=== PATIENT | male | born 1965 | race Two or more races ===

== ENCOUNTER 2019-01-04 11:12 | Emergency (ER) | payer BC ==
--- NOTE | 2019-01-04 11:26 | EDM.PDOC ---
ED HPI GENERAL MEDICAL PROBLEM - General Chief Complaint: General Stated Complaint: SICK Time Seen by Provider: 01/04/19 11:22 Source of Information: Reports: Patient History Limitations: Reports: No Limitations - History of Present Illness INITIAL COMMENTS - FREE TEXT/NARRATIVE: HISTORY AND PHYSICAL: History of present illness: Patient is a 53-year-old male who presents to the emergency room with complaints of fatigue and generalized weakness which started this morning. He states that he woke up and just felt "off". He is unable to describe in detail how he is feeling but is concerned that he is sick. He denies any headache, syncope, near syncope or change in vision. Denies any recent head injury, trauma or falls. He denies any fever, chills, chest pain, shortness of breath or cough. He denies any abdominal pain, nausea, vomiting, diarrhea, constipation or dysuria. He states he has been eating and drinking appropriately. Patient does have a history of type 2 diabetes and takes oral metformin for management of this. He states he last saw his primary care provider approximately 8 months ago as a routine evaluation. Review of systems: As per history of present illness and below otherwise all systems reviewed and negative. Past medical history: As per history of present illness and as reviewed below otherwise noncontributory. Surgical history: As per history of present illness and as reviewed below otherwise noncontributory. Social history: See social history for further information Family history: As per history of present illness and as reviewed below otherwise noncontributory. Physical exam: General: Well-developed and well-nourished 53-year-old male. Alert and oriented. Nontoxic appearing and in no acute distress. HEENT: Atraumatic, normocephalic, pupils equal and reactive bilaterally, negative for conjunctival pallor or scleral icterus, mucous membranes moist, TMs normal bilaterally, throat clear, neck supple, nontender, trachea midline. No drooling or trismus noted. No meningeal signs. No hot potato voice noted. Lungs: Clear to auscultation, breath sounds equal bilaterally, chest nontender. Heart: S1S2, regular rate and rhythm without overt murmur Abdomen: Soft, nondistended, nontender. Negative for masses or hepatosplenomegaly. Negative for costovertebral tenderness. Pelvis: Stable nontender. Genitourinary: Deferred. Rectal: Deferred. Skin: Intact, warm, dry. No lesions or rashes noted. Extremities: Atraumatic, negative for cords or calf pain. Neurovascular unremarkable. Neuro: Awake, alert, oriented. Cranial nerves II through XII unremarkable. Cerebellum unremarkable. Motor and sensory unremarkable throughout. Exam nonfocal. Notes: NIH: 0, GCS: 15. No weakness or deficits noted. Sounds like patient has not had appropriate management for follow-up with this type 2 diabetes. He does state that he takes his medication 1 -3 times per week (one dose per day at least once a week). He states that he has not been managing his diet as he should. He is agreeable to routine lab work and IV fluids at this time. Patient's blood sugar is elevated at 471 with a hemoglobin A1c of 10.9. Does appear slightly dehydrated with BUN/creatinine elevation and low sodium/ chloride. After receiving the IV fluids and subcutaneous insulin he reports he feels somewhat improved. He doesn't rotation of 21 days on and 9 days off, returning to [facility]. We did discuss the need for close follow-up with his primary care provider as his blood sugars are not well managed, mostly due to his medication noncompliance. I did offer to make him an appointment with our chemical educator and a primary care provider in the next 1-2 days. He declines, stating he is returning to [place] in the next 2-3 days. We will put him on a referral list in case he changes his mind. We did discuss the possibility of needing insulin in the future. Since the patient has not been taking his already prescribed metformin as was previously directed he would like to start with adjusting the metformin and being reevaluated by his primary care provider. He states he would not do any insulin, as he would not want to initiate this form of treatment. He would like to be discharged to home and voices understanding of the severity/consequences of untreated hypertension. Supportive care measures were reviewed and discussed. Voices understanding and is agreeable to plan of care. Denies any further questions or concerns at this time. Diagnostics: CBC, CMP, UA, EKG, chest x-ray, orthostatic vital signs Therapeutics: Normal saline Prescription: Meformin Impression: Hyperglycemia Medication noncompliance Type 2 diabetes Plan: 1. Please continue taking your home medications, would like to increase your Metformin to 850mg twice daily with food (Lunch/Supper). Increase your oral fluids and eat small frequent healthy meals. 2. Your blood sugar was elevated; I would like you to establish care here and follow up with a primary care provider in the next 1-2 days for re-evaluation of your Type 2 Diabetes. May need your medications further re-adjusted. 3. Return to ED as needed and as discussed. Definitive disposition and diagnosis as appropriate pending reevaluation and review of above. - Related Data Allergies Allergy/AdvReac Type Severity Reaction Status Date / Time No Known Allergies Allergy Verified 01/04/19 11:25 Home Meds: Home Meds metFORMIN [Glucophage] 850 mg PO WITHDINNER 01/04/19 [History] ED ROS GENERAL - Review of Systems Review Of Systems: ROS reveals no pertinent complaints other than HPI. ED EXAM, GENERAL - Physical Exam Exam: See Below (See dictation) Course - Vital Signs Last Recorded V/S: Last Vital Signs Temp 96.9 F 01/04/19 11:26 Pulse 92 01/04/19 11:26 Resp 16 01/04/19 11:26 BP 121/73 01/04/19 11:26 Pulse Ox 96 01/04/19 11:26 Orthostatic Blood Pressure [ 103/67 Standing] Orthostatic Blood Pressure [ 108/78 Sitting] Orthostatic Blood Pressure [ 124/83 Supine] - Orders/Labs/Meds Orders: Active Orders 24 hr Category Date Time Status EKG Documentation Completion [RC] STAT Care 01/04/19 11:34 Active Orthostatic Vital Signs [RC] ASDIRECTED Care 01/04/19 11:34 Active Labs: Laboratory Tests 01/04/19 01/04/19 01/04/19 Range/Units 11:47 11:47 11:47 WBC 6.50 (4.0-11.0) K/uL RBC 5.17 (4.50-5.90) M/uL Hgb 15.5 (13.0-17.0) g/dL Hct 43.3 (38.0-50.0) % MCV 83.8 (80.0-98.0) fL MCH 30.0 (27.0-32.0) pg MCHC 35.8 (31.0-37.0) g/dL RDW Std Deviation 37.3 (28.0-62.0) fl RDW Coeff of Amelia 12 (11.0-15.0) % Plt Count 164 (150-400) K/uL MPV 10.20 (7.40-12.00) fL Neut % (Auto) 53.8 (48.0-80.0) % Lymph % (Auto) 37.8 (16.0-40.0) % [place] % (Auto) 5.8 (0.0-15.0) % Eos % (Auto) 2.3 (0.0-7.0) % Baso % (Auto) 0.3 (0.0-1.5) % Neut # (Auto) 3.5 (1.4-5.7) K/uL Lymph # (Auto) 2.5 H (0.6-2.4) K/uL [place] # (Auto) 0.4 (0.0-0.8) K/uL Eos # (Auto) 0.2 (0.0-0.7) K/uL Baso # (Auto) 0.0 (0.0-0.1) K/uL Nucleated RBC % 0.0 /100WBC Nucleated RBCs # 0 K/uL Sodium 130 L (136-148) mmol/L Potassium 4.8 (3.5-5.1) mmol/L Chloride 95 L (98-107) mmol/L Carbon Dioxide 28.2 (21.0-32.0) mmol/L BUN 23 H (7.0-18.0) mg/dL Creatinine 1.4 H (0.8-1.3) mg/dL Est Cr Clr Drug Dosing 57.68 mL/min Estimated GFR (MDRD) 52.6 ml/min Glucose 471 H (74-106) mg/dL Hemoglobin A1c (4.5-6.2) % Calcium 9.4 (8.5-10.1) mg/dL Total Bilirubin 0.6 (0.2-1.0) mg/dL AST 11 L (15-37) IU/L ALT 27 (14-63) IU/L Alkaline Phosphatase 99 (46-116) U/L Troponin I < 0.050 (0.000-0.056) ng/mL Total Protein 7.3 (6.4-8.2) g/dL Albumin 4.1 (3.4-5.0) g/dL Globulin 3.2 (2.6-4.0) g/dL Albumin/Globulin Ratio 1.3 (0.9-1.6) TSH 3rd Generation 2.35 (0.36-3.74) uIU/mL Urine Color Urine Appearance Urine pH (5.0-8.0) Ur Specific [place] (1.001-1.035) Urine Protein (NEGATIVE) mg/dL Urine Glucose (UA) (NEGATIVE) mg/dL Urine Ketones (NEGATIVE) mg/dL Urine Occult Blood (NEGATIVE) Urine Nitrite (NEGATIVE) Urine Bilirubin (NEGATIVE) Urine Urobilinogen (<2.0) EU/dL Ur Leukocyte Esterase (NEGATIVE) 01/04/19 01/04/19 Range/Units 11:47 12:47 WBC (4.0-11.0) K/uL RBC (4.50-5.90) M/uL Hgb (13.0-17.0) g/dL Hct (38.0-50.0) % MCV (80.0-98.0) fL MCH (27.0-32.0) pg MCHC (31.0-37.0) g/dL RDW Std Deviation (28.0-62.0) fl RDW Coeff of Amelia (11.0-15.0) % Plt Count (150-400) K/uL MPV (7.40-12.00) fL Neut % (Auto) (48.0-80.0) % Lymph % (Auto) (16.0-40.0) % [place] % (Auto) (0.0-15.0) % Eos % (Auto) (0.0-7.0) % Baso % (Auto) (0.0-1.5) % Neut # (Auto) (1.4-5.7) K/uL Lymph # (Auto) (0.6-2.4) K/uL [place] # (Auto) (0.0-0.8) K/uL Eos # (Auto) (0.0-0.7) K/uL Baso # (Auto) (0.0-0.1) K/uL Nucleated RBC % /100WBC Nucleated RBCs # K/uL Sodium (136-148) mmol/L Potassium (3.5-5.1) mmol/L Chloride (98-107) mmol/L Carbon Dioxide (21.0-32.0) mmol/L BUN (7.0-18.0) mg/dL Creatinine (0.8-1.3) mg/dL Est Cr Clr Drug Dosing mL/min Estimated GFR (MDRD) ml/min Glucose (74-106) mg/dL Hemoglobin A1c 10.9 H (4.5-6.2) % Calcium (8.5-10.1) mg/dL Total Bilirubin (0.2-1.0) mg/dL AST (15-37) IU/L ALT (14-63) IU/L Alkaline Phosphatase (46-116) U/L Troponin I (0.000-0.056) ng/mL Total Protein (6.4-8.2) g/dL Albumin (3.4-5.0) g/dL Globulin (2.6-4.0) g/dL Albumin/Globulin Ratio (0.9-1.6) TSH 3rd Generation (0.36-3.74) uIU/mL Urine Color YELLOW Urine Appearance CLEAR Urine pH 6.0 (5.0-8.0) Ur Specific [place] 1.015 (1.001-1.035) Urine Protein NEGATIVE (NEGATIVE) mg/dL Urine Glucose (UA) >=1000 (NEGATIVE) mg/dL Urine Ketones NEGATIVE (NEGATIVE) mg/dL Urine Occult Blood NEGATIVE (NEGATIVE) Urine Nitrite NEGATIVE (NEGATIVE) Urine Bilirubin NEGATIVE (NEGATIVE) Urine Urobilinogen 0.2 (<2.0) EU/dL Ur Leukocyte Esterase NEGATIVE (NEGATIVE) Meds: Medications Discontinued Medications Generic Name Dose Route Start Last Admin Trade Name Fe PRN Reason Stop Dose Admin Sodium Chloride 1,000 mls @ 999 mls/hr 01/04/19 11:34 01/04/19 11:51 Normal Saline IV 01/04/19 12:34 999 mls/hr STAT ONE Administration Insulin Human Regular 5 unit 01/04/19 12:54 01/04/19 13:07 Novolin R SUBCUT 01/04/19 12:55 5 unit ONETIME ONE Administration Protocol Departure - Departure Time of Disposition: 13:32 Disposition: Home, Self-Care 01 Clinical Impression: Hyperglycemia, Noncompliance with medication regimen Type 2 diabetes mellitus Qualifiers: Diabetes mellitus ocean transportation intermediary insulin use: without correction use Diabetes mellitus complication status: with unspecified complications Qualified Code(s): E11.8 - Type 2 diabetes mellitus with unspecified complications - Discharge Information Referrals: PCP,None [Primary Care Provider] - Forms: ED Department Discharge Additional Instructions: The following information is given to patients seen in the emergency department who are being discharged to home. This information is to outline your options for follow-up care. We provide all patients seen in our emergency department with a follow-up referral. The need for follow-up, as well as the timing and circumstances, are variable depending upon the specifics of your emergency department visit. If you don't have a primary care physician on staff, we will provide you with a referral. We always advise you to contact your personal physician following an emergency department visit to inform them of the circumstance of the visit and for follow-up with them and/or the need for any referrals to a consulting specialist. The emergency department will also refer you to a specialist when appropriate. This referral assures that you have the opportunity for follow-up care with a specialist. All of these measure are taken in an effort to provide you with optimal care, which includes your follow-up. Under all circumstances we always encourage you to contact your private physician who remains a resource for coordinating your care. When calling for follow-up care, please make the office aware that this follow-up is from your recent emergency room visit. If for any reason you are refused follow-up, please contact the [facility] Emergency Department at and asked to speak to the emergency department charge nurse. [facility] [address] [place] [address] [id number] [address] [address] 1. Please take your home medications as we discussed, would like to increase your Metformin to 850mg twice daily with food (Lunch/Supper). Increase your oral fluids and eat small frequent healthy meals. 2. Your blood sugar was elevated; I would like you to establish care here and follow up with a primary care provider in the next 1-2 days for re-evaluation of your Type 2 Diabetes. You may also follow up with our chemical educator for further education/management of dietary needs. It is imperative that if you do not follow-up here in [place], you need to see her primary care provider in [place] in the next few days. May need your medications further re-adjusted. 3. Return to ED as needed and as discussed. - My Orders Last 24 Hours: My Active Orders 01/04/19 11:34 EKG Documentation Completion [RC] STAT Orthostatic Vital Signs [RC] ASDIRECTED - Assessment/Plan Last 24 Hours: My Active Orders 01/04/19 11:34 EKG Documentation Completion [RC] STAT Orthostatic Vital Signs [RC] ASDIRECTED
[2019-01-04] MEDS ORDERED: Sodium Chloride 0.9% 1,000 ML IV ONE (11:34)
[2019-01-04 12:20] LABS: CHLORIDE,CL 95 mmol/L (98-107); SODIUM,NA 130 mmol/L (136-148)
[2019-01-04] MEDS ORDERED: Insulin Regular, Human 100 Units/ML 10 ML Vial SUBCUT ONE (12:54)
--- NOTE | 2019-01-04 13:04 | CR ---
INDICATION: Dizzy weak TECHNIQUE: Single view chest. FINDINGS: The lungs are clear. The heart, mediastinum and pulmonary vessels are of normal size. There is no evidence of pleural disease. IMPRESSION: Negative chest. Dictated by Alexandra Molina MD @ Jan 04 2019 1:03PM Signed by Dr. Alexandra Molina @ Jan 04 2019 1:04PM
[2019-01-04 13:12] LABS: HEMOGLOBIN A1C 10.9 % (4.5-6.2)
== END 2019-01-04 13:55 | disposition home or self-care (01) ==
LOC: MW.ED 11:12
DX: E11.65 Type 2 diabetes mellitus with hyperglycemia (principal); Z91.19 Patient's noncompliance with other medical treatment and regimen
CPT/HCPCS: 36415; 71045; 80053; 81003; 82962; 83036; 84443; 84484; 85025; 93005; 96360; 99285; J7040; 99283; J1815-GY